=== PATIENT | female | born 1945 | race Hispanic/Latino ===

== ENCOUNTER → 2019-03-15 | Outpatient (CLI) | payer OTHER, SELFPAY | END | disposition home or self-care (01) | LOC: OIH 14:45 | PROVIDERS: ATTEND Internal Medicine Cardiovascular Disease | DX: Z13.6 Encounter for screening for cardiovascular disorders (principal) | CPT/HCPCS: 75571 ==

== ENCOUNTER 2019-04-01 12:33 | Emergency (ER) | payer OTHER, MEDICARE ==
[2019-04-01 14:02] LABS: RAPID GROUP A STREP NEGATIVE (NEGATIVE)
[2019-04-01] MEDS ORDERED: BENZONATATE 100 MG CAPSULE PO ONE (14:33)
[2019-04-01] MEDS ORDERED: ACETAMINOPHEN 325 MG TAB ONE (14:33)
== END 2019-04-01 15:42 | disposition home or self-care (01) ==
LOC: EDH 12:33
DX: J02.8 Acute pharyngitis due to other specified organisms (principal); B97.89 Other viral agents as the cause of diseases classified elsewhere; I10 Essential (primary) hypertension; I25.10 Atherosclerotic heart disease of native coronary artery without angina pectoris; Z90.49 Acquired absence of other specified parts of digestive tract
CPT/HCPCS: 87804; 87880

== ENCOUNTER 2019-05-02 06:03 | Observation (INO) | payer OTHER, MEDICARE ==
[2019-04-30 16:55] LABS: APPEARANCE,URINE CLEAR (CLEAR); BILIRUBIN,URINE NEGATIVE (NEGATIVE); COLOR,URINE YELLOW (YELLOW); GLUCOSE, URINE (UA) NEGATIVE (NEGATIVE); KETONES,URINE 15 mg/dL (NEGATIVE); LEUKOCYTE ESTERASE ,URINE NEGATIVE (NEGATIVE); NITRATE,URINE NEGATIVE (NEGATIVE); OCCULT BLOOD,URINE NEGATIVE (NEGATIVE); PH,URINE 5.5 (5.0-8.0); PROTEIN,URINE NEGATIVE (NEGATIVE); UROBILINOGEN,URINE 0.2 mg/dL (0.2-1.0)
[2019-04-30 16:58] LABS: BASOPHILS % (AUTO) 0.5 % (0.0-5.0); EOSINOPHILS % (AUTO) 0.8 % (0.0-8.0); HEMATOCRIT 34.5 % (36-48); MEAN CORPUSCULAR HGB CONC 31.1 g/dL (32.0-36.0); MEAN CORPUSCULAR VOLUME 70.8 fL (79-99); MONOCYTES % (AUTO) 9.2 % (3.0-13.0); NEUTROPHILS % (AUTO) 68.5 % (40.0-77.0); PLATELET COUNT (AUTO) 229 K/uL (130-400); RED BLOOD CELL COUNT(AUTO) 4.88 MIL/uL (4.00-5.50); RED CELL DISTRIBUTION WIDTH 23.2 % (11.0-15.5); WHITE BLOOD COUNT (AUTO) 7.2 K/uL (4.8-10.8)
[2019-04-30 17:07] LABS: CREATININE 0.7 mg/dL (0.5-1.5); POTASSIUM 4.3 mmol/L (3.5-5.1)
[2019-04-30 17:10] LABS: PARTIAL THROMBOPLASTIN TIME 27.3 SEC (26.3-35.5); PROTHROMBIN TIME 10.5 SEC (9.6-11.6)
[2019-04-30 17:20] VITALS: BP 139/56
[~2019-05-02] VITALS: Ht 148.6 cm; Wt 54.5 kg
[2019-05-02] VITALS (9 sets, daily range): BP systolic 110–143; BP diastolic 51–82
[~2019-05-02 06:03] MED LIST: ACET-2247 PO; ASPI-555 PO; ATOR10TA69 PO; CALC-1123 PO; CARDIO PO; FURO40TA5 PO; METF-446 PO; METO-408 PO; MULTI BETIC PO; OMEP40CA37 PO; VENL150T3 PO; [UNRECOGNIZED DRUG - OTHER] PO
[2019-05-02] MEDS ORDERED: SODIUM CHLORIDE 0.9% 1000ML 1,000 ML IV SCH (08:00)
[2019-05-02] MEDS ORDERED: IOHEXOL 350 MG/ML 100ML INFUS..BTL IV ONE ×2 (10:36→12:15)
[2019-05-02] MEDS ORDERED: SODIUM BICARB 50MEQ 50ML VIAL ONE (10:36)
[2019-05-02] MEDS ORDERED: NITROGLYCERIN 5 MG/ML 10 ML VIAL IV ONE (10:36)
[2019-05-02] MEDS ORDERED: IOHEXOL-350 50ML VIAL IV ONE ×2 (10:36→12:05)
[2019-05-02] MEDS ORDERED: LIDOCAINE HCL 2% 20ML ONE (10:36)
[2019-05-02] MEDS ORDERED: MIDAZOLAM HCL 1 MG/ML 2ML VIAL ONE ×2 (10:57→11:44)
[2019-05-02] MEDS ORDERED: MEPERIDINE-PF 25 MG/ML SYG ONE ×2 (10:57→11:43)
[2019-05-02] MEDS ORDERED: HEPARIN SODIUM 1000UNIT/ML 10ML VIAL ONE (11:18)
--- NOTE | 2019-05-02 12:25 | NUR ---
OBTAINED PHONE NUMBER FOR PT BROTHER THAT LIVES IN [place], PER DR. TOWNSEND HE WANTED TO INFORM FAMILY ON PT CONDITION. RAFAELA ARBOLEDA CAME TO TALK TO BRENDA LIVINGSTON ( brother ), PER PT BROTHER HE WANTS RAFAELA TO ADDRESS INFORMATION ON PT SISTER WITH HIS SON TABITHA LIVINGSTON. PTS BROTHER ONLY SPEAKS INDONESIAN. RAFAELA ARBOLEDA SPOKE TO TABITHA MIKI ON PT CONDITION AND PLAN. PER TABITHA LIVINGSTON BOTH HIM AND PT BROTHER UNDERSTANDS INFORMATION AND PLANS FOR PT PER DR. TOWNSEND. TABITHA AND BRENDA LIVINGSTON AGREED FOR INFORMATION TO BE ADDRESSED WITH PT FRIEND NAMAN HOGAN. NAMAN HOGAN IS IN PATIENTS ROOM.
[2019-05-02] MEDS ORDERED: LABETALOL HCL 5 MG/ML 20ML VIAL IV ONE (13:00)
[2019-05-02] MEDS ORDERED: CLOPIDOGREL BISULFATE 300 MG TAB ONE (13:21)
[2019-05-02] MEDS ORDERED: DEXTROSE 50%-WATER 50 ML DISP.SYRIN IV PRN (13:30)
[2019-05-02] MEDS ORDERED: ONDANSETRON HCL 4 MG/2 ML VIAL IVP PRN (13:30)
[2019-05-02] MEDS ORDERED: ACETAMINOPHEN 325 MG TAB PO PRN (13:30)
[2019-05-02] MEDS: SODIUM CHLORIDE 0.9% 10 ML VIAL IV SCH ×2 (13:30→21:30)
[2019-05-02] MEDS: ALPRAZOLAM 0.5 MG TABLET PO SCH ×2 (15:08→21:37)
[2019-05-02] MEDS: [UNRECOGNIZED DRUG - OTHER] PO SCH ×2 (17:00→20:30)
[2019-05-02] MEDS: INSULIN HUMULIN R 100 UNIT/ML 3ML SQ SCH ×2 (17:24→21:37)
[2019-05-02] MEDS: CARVEDILOL 25 MG TABLET PO SCH (20:31)
[2019-05-02] MEDS ORDERED: LOSARTAN 50 MG TABLET PO SCH (21:00)
[2019-05-02] MEDS ORDERED: ATORVASTATIN CALCIUM 10 MG TABLET PO SCH (21:00)
[2019-05-03 00:02] VITALS: BP 106/51
[2019-05-03 01:20] VITALS: BP 164/70
[2019-05-03 03:28] LABS: HEMATOCRIT 26.7 % (36-48); MEAN CORPUSCULAR HEMOGLOBIN 21.5 pg (27.0-33.0); MEAN CORPUSCULAR HGB CONC 31.4 g/dL (32.0-36.0); MEAN CORPUSCULAR VOLUME 68.5 fL (79-99); PLATELET COUNT (AUTO) 179 K/uL (130-400); RED BLOOD CELL COUNT(AUTO) 3.91 MIL/uL (4.00-5.50); RED CELL DISTRIBUTION WIDTH 22.8 % (11.0-15.5); WHITE BLOOD COUNT (AUTO) 9.3 K/uL (4.8-10.8)
[2019-05-03 03:40] LABS: ALBUMIN 2.8 g/dL (3.5-5.0); B-TYPE NATRIURETIC PEPTIDE 405 pg/mL (0-100); BILIRUBIN,TOTAL 0.2 mg/dL (0.2-1.0); CREATININE 0.6 mg/dL (0.5-1.5); POTASSIUM 3.4 mmol/L (3.5-5.1); TOTAL PROTEIN, SERUM 5.5 g/dL (6.0-8.3)
[2019-05-03 04:04] VITALS: BP 104/44
[2019-05-03] MEDS: SODIUM CHLORIDE 0.9% 10 ML VIAL IV SCH ×2 (05:19→12:41)
[2019-05-03] MEDS: INSULIN HUMULIN R 100 UNIT/ML 3ML SQ SCH ×3 (06:18→16:19)
[2019-05-03 07:00] VITALS: BP 121/50
[2019-05-03] MEDS ORDERED: MAG OX PO SCH (09:00)
[2019-05-03] MEDS ORDERED: CALCIUM CARB PO SCH (09:00)
[2019-05-03] MEDS: [UNRECOGNIZED DRUG - OTHER] PO SCH ×2 (09:00→12:41)
[2019-05-03] MEDS ORDERED: VENLAFAXINE HCL XR 37.5 MG CAP PO SCH (09:00)
[2019-05-03] MEDS ORDERED: CLOPIDOGREL BISULFATE 75 MG TAB PO SCH (09:00)
[2019-05-03] MEDS ORDERED: FUROSEMIDE 40 MG TABLET PO SCH (09:00)
[2019-05-03] MEDS ORDERED: MULTI BETIC PO SCH (09:00)
[2019-05-03] MEDS ORDERED: ASPIRIN 81MG TAB.CHEW PO SCH (09:00)
[2019-05-03] MEDS ORDERED: PANTOPRAZOLE SODIUM 40 MG TABLET.DR PO SCH (09:00)
[2019-05-03] MEDS: ALPRAZOLAM 0.5 MG TABLET PO SCH ×2 (09:00→14:00)
[2019-05-03] MEDS ORDERED: ZINC SULF PO SCH (09:00)
[2019-05-03] MEDS: CARVEDILOL 25 MG TABLET PO SCH (09:36)
[2019-05-03 11:00] VITALS: BP 74/35
[2019-05-03 16:00] VITALS: BP 117/63
[2019-05-03] MEDS ORDERED: PANT40TA PO (18:22)
[2019-05-03] MEDS ORDERED: CARV25TA77 PO (18:22)
[2019-05-03] MEDS ORDERED: LOSA50TA64 PO (18:23)
[2019-05-03] MEDS ORDERED: CLOP75TA14 PO (18:23)
[2019-05-03] MEDS ORDERED: FURO40TA5 PO (18:23)
== END 2019-05-03 19:00 | disposition home or self-care (01) ==
LOC: DAH 06:03 → DAHIP 06:04 → DAH 06:04 → 2AH 14:27
PROVIDERS: ADMIT Internal Medicine; ATTEND Internal Medicine
DX: I25.119 Atherosclerotic heart disease of native coronary artery with unspecified angina pectoris (principal); I08.1 Rheumatic disorders of both mitral and tricuspid valves; I25.5 Ischemic cardiomyopathy; I25.2 Old myocardial infarction; J45.909 Unspecified asthma, uncomplicated; I11.0 Hypertensive heart disease with heart failure; I50.9 Heart failure, unspecified; E78.5 Hyperlipidemia, unspecified; Z79.899 Other long term (current) drug therapy
CPT/HCPCS: 33990; 36415 ×2; 71045; 80048; 80053; 80061; 81003; 82948 ×6; 83880; 85025; 85027; 85610; 85730; 93005; 93458; 96372; A4606; C1725 ×2; C1760 ×4; C1769 ×2; C1874; C1876 ×2; C1887 ×2; C1889; C1894 ×2; C9600 ×2; G0378 ×26; J1644 ×2; J1815 ×2; J2175 ×2; J2250 ×2; J3490 ×4; J7030; Q9965 ×2; Q9967 ×3; 99156; 99157

== ENCOUNTER → 2019-05-09 | Outpatient (CLI) | payer OTHER, MEDICARE ==
[~2019-05-09] MED LIST changes: -CARDIO PO; +CARV25TA77 PO; +CLOP75TA14 PO; +LOSA50TA64 PO; -METO-408 PO; -OMEP40CA37 PO; +PANT40TA PO
== END | disposition home or self-care (01) ==
LOC: RAH 12:18
PROVIDERS: ATTEND Internal Medicine Cardiovascular Disease
DX: I72.4 Aneurysm of artery of lower extremity (principal)
CPT/HCPCS: 76882

== ENCOUNTER 2019-05-16 10:20 | Inpatient (IN) | payer OTHER, MEDICARE ==
[~2019-05-16] VITALS: Ht 149.9 cm; Wt 54.1 kg
[2019-05-16 10:46] LABS: BASOPHILS % (AUTO) 0.8 % (0.0-5.0); EOSINOPHILS % (AUTO) 0.8 % (0.0-8.0); HEMATOCRIT 31.2 % (36-48); LYMPHOCYTES % (AUTO) 17.9 % (21.0-51.0); MEAN CORPUSCULAR HEMOGLOBIN 22.7 pg (27.0-33.0); MEAN CORPUSCULAR HGB CONC 30.9 g/dL (32.0-36.0); MEAN CORPUSCULAR VOLUME 73.5 fL (79-99); MONOCYTES % (AUTO) 9.3 % (3.0-13.0); NEUTROPHILS % (AUTO) 71.2 % (40.0-77.0); PLATELET COUNT (AUTO) 370 K/uL (130-400); RED BLOOD CELL COUNT(AUTO) 4.25 MIL/uL (4.00-5.50); RED CELL DISTRIBUTION WIDTH 24.9 % (11.0-15.5)
[2019-05-16 10:55] LABS: INR 1.01 (0.85-1.15); PROTHROMBIN TIME 10.6 SEC (9.6-11.6)
[2019-05-16 11:20] LABS: ALBUMIN 3.2 g/dL (3.5-5.0); BILIRUBIN,TOTAL 0.2 mg/dL (0.2-1.0); CREATININE 0.7 mg/dL (0.5-1.5); POTASSIUM 4.1 mmol/L (3.5-5.1); TOTAL PROTEIN, SERUM 6.8 g/dL (6.0-8.3)
[2019-05-16] MEDS ORDERED: ASPIRIN 325 MG TABLET ONE (11:49)
[2019-05-16 13:16] LABS: APPEARANCE,URINE Clear (CLEAR); BILIRUBIN,URINE Negative (NEGATIVE); COLOR,URINE Yellow (YELLOW); GLUCOSE, URINE (UA) Negative (NEGATIVE); KETONES,URINE Negative (NEGATIVE); LEUKOCYTE ESTERASE ,URINE Negative (NEGATIVE); NITRATE,URINE Negative (NEGATIVE); OCCULT BLOOD,URINE Negative (NEGATIVE); PH,URINE 5.5 (5.0-8.0); PROTEIN,URINE Negative (NEGATIVE); UROBILINOGEN,URINE 0.2 mg/dL (0.2-1.0)
[2019-05-16] MEDS ORDERED: ENOXAPARIN SODIUM 60 MG/0.6 ML SQ ONE (14:52)
[2019-05-16 16:00] VITALS: BP 125/81
[2019-05-16] MEDS ORDERED: ACETAMINOPHEN 325 MG TAB PO PRN (17:00)
[2019-05-16] MEDS: METFORMIN HCL 500 MG TABLET PO SCH (17:48)
[2019-05-16] MEDS ORDERED: PHARMACY COMMUNICATION MISC SCH (18:15)
[2019-05-16] MEDS: ENOXAPARIN SODIUM 60 MG/0.6 ML SQ SCH ×2 (18:27→19:26)
--- NOTE | 2019-05-16 18:30 | NUR ---
ADMISSION COMPLETED. PATIENT WAS ORIENTED TO THE ROOM ENVIRONMENT AND ASSIGNED NURSE. T/C PLACED TO DR SUN FOR GLUCOSE MONITORING, DIET ORDER AND LUSTERER INVOLVEMENT DUE TO TROPONIN 0.22. ORDERS RECEIVED AND CARRIED OUT. DR JOHNSON IS MANAGER BILINGUAL AND HE WAS NOTIFIED OF THE CONSULT, AND PATIENT INFORMATION/STATUS WAS REPORTED TO HIM. PENDING MD TO SEE PATIENT.
[2019-05-16 18:54] LABS: TROPONIN I 0.19 ng/mL (0.00-0.06)
[2019-05-16 19:00] VITALS: BP 127/71
[2019-05-16] MEDS: INSULIN R PO SS1 SQ SCH (19:26)
[2019-05-16] MEDS: CARVEDILOL 25 MG TABLET PO SCH (19:56)
[2019-05-16] MEDS: LOSARTAN 50 MG TABLET PO SCH (19:56)
[2019-05-16] MEDS: ATORVASTATIN CALCIUM 10 MG TABLET PO SCH (19:56)
--- NOTE | 2019-05-16 20:27 | NUR ---
md visit dr. gomez in to see and examen patient with orders
[2019-05-17] VITALS: BP 130/57
[2019-05-17 00:04] LABS: TROPONIN I 0.17 ng/mL (0.00-0.06)
[2019-05-17 04:00] VITALS: BP 125/59
[2019-05-17] MEDS: INSULIN R PO SS1 SQ SCH ×4 (06:08→19:32)
[2019-05-17 07:30] VITALS: BP 126/61
[2019-05-17] MEDS ORDERED: REGADENOSON 0.4 MG/5 ML PF SYG IVP SCH (07:45)
[2019-05-17] MEDS: METFORMIN HCL 500 MG TABLET PO SCH ×2 (08:00→14:41)
[2019-05-17] MEDS: ZINC SULF PO SCH (09:00)
[2019-05-17] MEDS ORDERED: NON-FORMULARY MEDICATION 1 EACH (Aspirin (Aspir 81) 81 MG) PO SCH (09:00)
[2019-05-17] MEDS: CALCIUM CARB PO SCH (09:00)
[2019-05-17] MEDS: MULTI BETIC PO SCH (09:00)
[2019-05-17] MEDS: MAG OX PO SCH (09:00)
[2019-05-17] MEDS ORDERED: CLOPIDOGREL BISULFATE 75 MG TAB PO SCH (09:00)
[2019-05-17 11:00] VITALS: BP 133/96
[2019-05-17] MEDS ORDERED: ONDANSETRON HCL 4 MG/2 ML VIAL IVP PRN ×2 (11:15)
[2019-05-17] MEDS ORDERED: ONDANSETRON HCL 4 MG/2 ML VIAL ONE (11:15)
[2019-05-17] MEDS: PANTOPRAZOLE SODIUM 40 MG TABLET.DR PO SCH (11:20)
[2019-05-17] MEDS: VENLAFAXINE HCL XR 37.5 MG CAP PO SCH (11:20)
[2019-05-17] MEDS: FUROSEMIDE 40 MG TABLET PO SCH (11:21)
[2019-05-17] MEDS: ASPIRIN 325 MG TABLET PO SCH (11:21)
[2019-05-17] MEDS: CLOPIDOGREL BISULFATE 75 MG TAB PO SCH (11:21)
[2019-05-17] MEDS: ENOXAPARIN SODIUM 60 MG/0.6 ML SQ SCH ×2 (11:21→20:31)
[2019-05-17] MEDS: CARVEDILOL 25 MG TABLET PO SCH ×2 (11:21→20:25)
--- NOTE | 2019-05-17 12:25 | NUR ---
DCP: CM met with pt discussed dc plans. Pt is independent prior to admission, lives at home alone, friends lives close by. Denies any equipments/services. Pt feels safe to go back home, still drives and arranges own needs, friend Mercedes/Sydney on facesheet able to assist with transportation as necessary. DC plan to home once stable. CM to cont to follow up. Addendum: 05/17/19 at 1226 by MIGUEL CHEEMA LVN CM Amended: Links added.
[2019-05-17 16:00] VITALS: BP 97/45
[2019-05-17] MEDS ORDERED: LOSA25TA41 PO (19:38)
[2019-05-17] MEDS ORDERED: CARV12.580 PO (19:38)
[2019-05-17] MEDS ORDERED: CARVEDILOL 12.5 MG TABLET PO ONE (19:43)
[2019-05-17 20:00] VITALS: BP 134/52
[2019-05-17] MEDS: ATORVASTATIN CALCIUM 10 MG TABLET PO SCH (20:25)
[2019-05-17] MEDS: LOSARTAN 50 MG TABLET PO SCH (20:26)
[2019-05-18] VITALS: BP 130/50
[2019-05-18 04:00] VITALS: BP 125/57
[2019-05-18] MEDS: INSULIN R PO SS1 SQ SCH ×4 (05:53→19:44)
--- NOTE | 2019-05-18 07:35 | NUR ---
DR. NOREEN SUH HERE TO SEE PATIENT. AWARE OF LEXISCAN RESULTS. NELSON CHILEL FOR DR. SORTO ASKED TO OBTAIN EMPLOYMENT SECURITY OFFICER REPORTS FROM PREVIOUS ADMISSION (04/2019) AND TO PLACE IN PATIENT CHART FOR FURTHER REVIEW. ORDER PLACED TO CONSULT WITH DR. ROSADO.
[2019-05-18 08:00] VITALS: BP 136/53
[2019-05-18] MEDS: METFORMIN HCL 500 MG TABLET PO SCH ×2 (08:00→17:00)
[2019-05-18] MEDS: MAG OX PO SCH (09:00)
[2019-05-18] MEDS: CALCIUM CARB PO SCH (09:00)
[2019-05-18] MEDS: ZINC SULF PO SCH (09:00)
[2019-05-18] MEDS: MULTI BETIC PO SCH (09:00)
--- NOTE | 2019-05-18 10:00 | NUR ---
FUROSEMIDE DOSE PATIENT REPORTS TAKING HOME DOSE FUROSEMIDE 20MG PO DAILY. RX BOTTLE PATIENT HAS STATES "FUROSEMIDE 40MG PO DAILY" AND PATIENT REPLIED THAT DR. SUN INSTRUCTED PATIENT TO "TAKE HALF A PILL SO MY BLOOD PRESSURE WILL NOT DROP." I CLARIFIED TO PATIENT "YOUR FUROSEMIDE DOSE IS 20MG PO DAILY?" AND PATIENT REPLIED YES.
[2019-05-18] MEDS: ASPIRIN 325 MG TABLET PO SCH (10:07)
[2019-05-18] MEDS: CLOPIDOGREL BISULFATE 75 MG TAB PO SCH (10:08)
[2019-05-18] MEDS: PANTOPRAZOLE SODIUM 40 MG TABLET.DR PO SCH (10:08)
[2019-05-18] MEDS: CARVEDILOL 25 MG TABLET PO SCH (10:08)
[2019-05-18] MEDS: FUROSEMIDE 40 MG TABLET PO SCH (10:09)
[2019-05-18] MEDS: VENLAFAXINE HCL XR 37.5 MG CAP PO SCH (10:14)
[2019-05-18] MEDS: ENOXAPARIN SODIUM 60 MG/0.6 ML SQ SCH ×2 (10:15→21:22)
[2019-05-18 12:00] VITALS: BP 117/48
--- NOTE | 2019-05-18 13:30 | NUR ---
DR. ROSADO/CT CERVICAL SPINE RESULTS CALLED DR. ROSADO TO REPORT CT CERVICAL SPINE RESULTS. MD REPLIED PATIENT CAN FOLLOW-UP WITH DR. ARRIAGA AN OUTPATIENT AFTER DISCHARGE, NEUROSURGEON CONSULT NOT NEEDED DURING THIS HOSPITALIZATION. MD ALSO STATED THAT IF PRIMARY MD WANTS TO DISCHARGE PATIENT, OKAY TO DISCHARGE FROM NEUROLOGY STANDPOINT AND PATIENT TO F/U WITH DR. ROSADO 6-8 WEEKS AFTER DISCHARGE.
[2019-05-18] MEDS ORDERED: FURO20TA4 PO (14:00)
[2019-05-18 16:00] VITALS: BP 115/68
[2019-05-18 19:45] VITALS: BP 128/54
[2019-05-18] MEDS ORDERED: CARVEDILOL 12.5 MG TABLET PO ONE (19:54)
[2019-05-18] MEDS: ATORVASTATIN CALCIUM 10 MG TABLET PO SCH (20:19)
[2019-05-18] MEDS: LOSARTAN 50 MG TABLET PO SCH (20:19)
[2019-05-18] MEDS: CARVEDILOL 12.5 MG TABLET PO SCH (20:23)
[2019-05-19] VITALS: BP 147/75
[2019-05-19 04:00] VITALS: BP 129/54
[2019-05-19] MEDS: INSULIN R PO SS1 SQ SCH ×4 (06:30→21:00)
[2019-05-19 08:00] VITALS: BP 131/40
[2019-05-19] MEDS: METFORMIN HCL 500 MG TABLET PO SCH ×2 (08:00→16:48)
[2019-05-19] MEDS: MAG OX PO SCH (09:00)
[2019-05-19] MEDS: MULTI BETIC PO SCH (09:00)
[2019-05-19] MEDS: CALCIUM CARB PO SCH (09:00)
[2019-05-19] MEDS: ZINC SULF PO SCH (09:00)
[2019-05-19] MEDS: ASPIRIN 325 MG TABLET PO SCH (09:16)
[2019-05-19] MEDS: FUROSEMIDE 20 MG TABLET PO SCH (09:16)
[2019-05-19] MEDS: CARVEDILOL 12.5 MG TABLET PO SCH ×2 (09:17→21:06)
[2019-05-19] MEDS: CLOPIDOGREL BISULFATE 75 MG TAB PO SCH (09:17)
[2019-05-19] MEDS: VENLAFAXINE HCL XR 37.5 MG CAP PO SCH (09:17)
[2019-05-19] MEDS: PANTOPRAZOLE SODIUM 40 MG TABLET.DR PO SCH (09:17)
[2019-05-19] MEDS: ENOXAPARIN SODIUM 60 MG/0.6 ML SQ SCH ×2 (09:17→21:08)
[2019-05-19 11:42] VITALS: BP 126/64
--- NOTE | 2019-05-19 13:05 | NUR ---
TANIA MARIN MD TO REPORT THAT 2-D ECHO EXAM HAS BEEN COMPLETED. Addendum: 05/19/19 at 1308 by MANOJ SIFUENTES RN RN DR. JAIMES RETURNED MY CALL. AWARE THAT 2D-ECHO HAS BEEN COMPLETED.
[2019-05-19 15:25] VITALS: BP 133/55
[2019-05-19 20:00] VITALS: BP 129/52
[2019-05-19] MEDS: ATORVASTATIN CALCIUM 10 MG TABLET PO SCH (21:06)
[2019-05-19] MEDS: LOSARTAN 50 MG TABLET PO SCH (21:06)
[2019-05-20] VITALS: BP 119/51
[2019-05-20 04:00] VITALS: BP 135/65
[2019-05-20] MEDS: INSULIN R PO SS1 SQ SCH ×2 (07:30→11:30)
--- NOTE | 2019-05-20 07:30 | NUR ---
DR ANSARI ROUNDED ON PATIENT CALL HIM IF CLEAR FROM CARDIO SERVICE WHEN THEY READ THE ECHO.
[2019-05-20 07:38] VITALS: BP 139/66
[2019-05-20] MEDS: ZINC SULF PO SCH (09:00)
[2019-05-20] MEDS: MAG OX PO SCH (09:00)
[2019-05-20] MEDS: MULTI BETIC PO SCH (09:00)
[2019-05-20] MEDS: CALCIUM CARB PO SCH (09:00)
[2019-05-20] MEDS: CLOPIDOGREL BISULFATE 75 MG TAB PO SCH (09:46)
[2019-05-20] MEDS: FUROSEMIDE 20 MG TABLET PO SCH (09:46)
[2019-05-20] MEDS: ASPIRIN 325 MG TABLET PO SCH (09:46)
[2019-05-20] MEDS: PANTOPRAZOLE SODIUM 40 MG TABLET.DR PO SCH (09:46)
[2019-05-20] MEDS: VENLAFAXINE HCL XR 37.5 MG CAP PO SCH (09:46)
[2019-05-20] MEDS: CARVEDILOL 12.5 MG TABLET PO SCH (09:46)
[2019-05-20] MEDS: METFORMIN HCL 500 MG TABLET PO SCH (09:49)
[2019-05-20] MEDS: ENOXAPARIN SODIUM 60 MG/0.6 ML SQ SCH (09:52)
[2019-05-20 10:53] VITALS: BP 135/55
--- NOTE | 2019-05-20 14:10 | NUR ---
CONTACTED DR MCCURDY , PER DR JAIMES PATIENT IS CLEAR TO GDISCHARGE AND SHE IS TO FOLLOW-UP WITH HER PRECISION ASSEMBLY INSPECTOR IN 1-2 WEEKS . RECIEVED DISCHARGE ORDERS FROM DR MCCURDY.
[2019-05-20 16:13] VITALS: BP 128/59
--- NOTE | 2019-05-20 18:00 | NUR ---
DISCHARGE INSTRUCTION GIVEN USING THE BLUE PHONE TO TRANSLATION INSTRUCTION INTO SWEDISH PATIENT VERBALIZED UNDERSTANDING, TO FOLLOW-UP WITH HER WIRELESS ENGINEER IN 1-[address] SUN IN 1-2 WEEKS PATIENT TO CALL FOR APPOINTMENT. IV REMOVED WITH CATHTER INTACT AND SITE DRESSED,. TELEMETRY UNIT NOTIFIED OF DISCHARGE STATUS AND UNIT REMOVE. PATIENT TAKING BY WHEELCHAIR TO LOBBY AND LEFT WITH FAMILY FOR HOME NO QUESTIONS OR CONCERNS AT THIS TIME.
== END 2019-05-20 18:11 | disposition home or self-care (01) | DRG 552 ==
LOC: EDH 10:20 → EDHIP 12:00 → OBSVTOIN 12:00 → 4BH 15:41
PROVIDERS: ADMIT Internal Medicine; ATTEND Internal Medicine
DX: M48.02 Spinal stenosis, cervical region (principal); I42.0 Dilated cardiomyopathy; E11.9 Type 2 diabetes mellitus without complications; E78.5 Hyperlipidemia, unspecified; I10 Essential (primary) hypertension; I25.10 Atherosclerotic heart disease of native coronary artery without angina pectoris; I34.0 Nonrheumatic mitral (valve) insufficiency; Z95.5 Presence of coronary angioplasty implant and graft; Z86.73 Personal history of transient ischemic attack (TIA), and cerebral infarction without residual deficits; Z88.0 Allergy status to penicillin
CPT/HCPCS: 36415; 70450; 72125; 78452; 80053; 81003; 82550; 82948; 83874; 84484; 85025; 85610; 85730; 93005; 93017; 93306; 93880; 96374; A9500; G0378; J1650; J2405; J2785

== ENCOUNTER 2019-05-25 14:12 | Emergency (ER) | payer OTHER, MEDICARE ==
[~2019-05-25 14:12] MED LIST changes: +CARV12.580 PO; -CARV25TA77 PO; +FURO20TA4 PO; -FURO40TA5 PO; +LOSA25TA41 PO; -LOSA50TA64 PO; -[UNRECOGNIZED DRUG - OTHER] PO
[2019-05-25 16:49] LABS: BASOPHILS % (AUTO) 0.4 % (0.0-5.0); EOSINOPHILS % (AUTO) 0.4 % (0.0-8.0); HEMATOCRIT 34.1 % (36-48); LYMPHOCYTES % (AUTO) 14.3 % (21.0-51.0); MEAN CORPUSCULAR HEMOGLOBIN 23.2 pg (27.0-33.0); MEAN CORPUSCULAR HGB CONC 30.8 g/dL (32.0-36.0); MEAN CORPUSCULAR VOLUME 75.5 fL (79-99); MONOCYTES % (AUTO) 9.2 % (3.0-13.0); NEUTROPHILS % (AUTO) 75.7 % (40.0-77.0); PLATELET COUNT (AUTO) 265 K/uL (130-400); RED BLOOD CELL COUNT(AUTO) 4.51 MIL/uL (4.00-5.50); WHITE BLOOD COUNT (AUTO) 9.2 K/uL (4.8-10.8)
[2019-05-25 16:57] LABS: CREATININE 0.8 mg/dL (0.5-1.5); POTASSIUM 4.1 mmol/L (3.5-5.1)
[2019-05-25 17:14] LABS: APPEARANCE,URINE Clear (CLEAR); BILIRUBIN,URINE Negative (NEGATIVE); COLOR,URINE Yellow (YELLOW); GLUCOSE, URINE (UA) Negative (NEGATIVE); KETONES,URINE Negative (NEGATIVE); LEUKOCYTE ESTERASE ,URINE Negative (NEGATIVE); NITRATE,URINE Negative (NEGATIVE); OCCULT BLOOD,URINE Negative (NEGATIVE); PH,URINE 5.5 (5.0-8.0); PROTEIN,URINE Negative (NEGATIVE); UROBILINOGEN,URINE 0.2 mg/dL (0.2-1.0)
== END 2019-05-25 18:00 | disposition home or self-care (01) ==
LOC: EDH 14:12
DX: R07.82 Intercostal pain (principal); R55 Syncope and collapse; I25.10 Atherosclerotic heart disease of native coronary artery without angina pectoris; I10 Essential (primary) hypertension; E11.9 Type 2 diabetes mellitus without complications; F41.9 Anxiety disorder, unspecified; Z95.1 Presence of aortocoronary bypass graft; W18.39XA Other fall on same level, initial encounter; Y93.89 Activity, other specified; Y92.89 Other specified places as the place of occurrence of the external cause; Y99.8 Other external cause status
CPT/HCPCS: 36415; 71101; 80048; 81003; 84484; 85025; 93005

== ENCOUNTER 2019-06-17 09:24 | Emergency (ER) | payer OTHER, MEDICARE ==
[2019-06-17 09:42] LABS: BASOPHILS % (AUTO) 0.4 % (0.0-5.0); EOSINOPHILS % (AUTO) 0.2 % (0.0-8.0); LYMPHOCYTES % (AUTO) 12.7 % (21.0-51.0); MEAN CORPUSCULAR HEMOGLOBIN 24.3 pg (27.0-33.0); MEAN CORPUSCULAR HGB CONC 31.4 g/dL (32.0-36.0); MEAN CORPUSCULAR VOLUME 77.5 fL (79-99); MONOCYTES % (AUTO) 7.4 % (3.0-13.0); NEUTROPHILS % (AUTO) 79.3 % (40.0-77.0); PLATELET COUNT (AUTO) 273 K/uL (130-400); RED BLOOD CELL COUNT(AUTO) 4.26 MIL/uL (4.00-5.50); RED CELL DISTRIBUTION WIDTH 22.1 % (11.0-15.5); WHITE BLOOD COUNT (AUTO) 8.8 K/uL (4.8-10.8)
[2019-06-17 09:56] LABS: ALBUMIN 3.5 g/dL (3.5-5.0); BILIRUBIN,TOTAL 0.3 mg/dL (0.2-1.0); POTASSIUM 3.2 mmol/L (3.5-5.1)
[2019-06-17 10:00] LABS: CREATININE 0.8 mg/dL (0.5-1.5)
[2019-06-17 10:03] LABS: APPEARANCE,URINE Clear (CLEAR); BILIRUBIN,URINE Negative (NEGATIVE); COLOR,URINE Yellow (YELLOW); GLUCOSE, URINE (UA) Negative (NEGATIVE); KETONES,URINE Negative (NEGATIVE); LEUKOCYTE ESTERASE ,URINE Small (NEGATIVE); NITRATE,URINE Negative (NEGATIVE); OCCULT BLOOD,URINE Negative (NEGATIVE); PH,URINE 6.5 (5.0-8.0); PROTEIN,URINE Negative (NEGATIVE); UROBILINOGEN,URINE 0.2 mg/dL (0.2-1.0)
[2019-06-17 10:16] LABS: BACTERIA,URINE Rare /HPF (None Seen); RBC,URINE None Seen /HPF (0-1); SQUAMOUS EPITHELIAL CELL,UR Rare /HPF (0-2); WBC,URINE 0-1 /HPF (0-1)
== END 2019-06-17 12:34 | disposition home or self-care (01) ==
LOC: EDH 09:24
DX: F41.8 Other specified anxiety disorders (principal); H81.399 Other peripheral vertigo, unspecified ear; I25.10 Atherosclerotic heart disease of native coronary artery without angina pectoris; E11.9 Type 2 diabetes mellitus without complications; I10 Essential (primary) hypertension; Z90.49 Acquired absence of other specified parts of digestive tract; Z88.0 Allergy status to penicillin
CPT/HCPCS: 36415; 80053; 81001; 84484; 85025; 93005

== ENCOUNTER 2020-09-14 17:25 | Emergency (ER) | payer OTHER, MEDICARE ==
[~2020-09-14 17:25] MED LIST changes: -ASPI-555 PO; +ASPI-556 PO
[2020-09-14 18:01] LABS: BASOPHILS % (AUTO) 0.6 % (0.0-5.0); EOSINOPHILS % (AUTO) 1.3 % (0.0-8.0); HEMATOCRIT 38.5 % (36-48); LYMPHOCYTES % (AUTO) 41.7 % (21.0-51.0); MEAN CORPUSCULAR HGB CONC 32.2 g/dL (32.0-36.0); MEAN CORPUSCULAR VOLUME 83.9 fL (79-99); MONOCYTES % (AUTO) 13.2 % (3.0-13.0); PLATELET COUNT (AUTO) 186 K/uL (130-400); RED BLOOD CELL COUNT(AUTO) 4.59 MIL/uL (4.00-5.50); RED CELL DISTRIBUTION WIDTH 13.7 % (11.0-15.5); WHITE BLOOD COUNT (AUTO) 5.3 K/uL (4.8-10.8)
[2020-09-14 18:14] LABS: INR 0.94 (0.85-1.15); PROTHROMBIN TIME 10.2 SEC (9.6-11.6)
[2020-09-14 18:16] LABS: ALBUMIN 3.8 g/dL (3.5-5.0); BILIRUBIN,TOTAL 0.1 mg/dL (0.2-1.0); TOTAL PROTEIN, SERUM 7.2 g/dL (6.0-8.3)
== END 2020-09-14 19:22 | disposition home or self-care (01) ==
LOC: EDH 17:25
DX: I10 Essential (primary) hypertension (principal); E11.9 Type 2 diabetes mellitus without complications; Z88.0 Allergy status to penicillin
CPT/HCPCS: 36415; 71045; 80053; 82550; 84484; 85025; 85610; 85730; 93005

== ENCOUNTER 2021-08-05 21:19 | Emergency (ER) | payer MEDICARE ==
[~2021-08-05] VITALS: Ht 149.9 cm; Wt 59.9 kg
[~2021-08-05 21:19] MED LIST changes: -ACET-2247 PO; +ACET325T51 PO; -ASPI-556 PO; +BACL10TA PO; -CALC-1123 PO; -CARV12.580 PO; +CARV25TA PO; -CLOP75TA14 PO; +GLIP-162 PO; -LOSA25TA41 PO; +LOSA50TA64 PO; +MEMA10TA55 PO; -METF-446 PO; -MULTI BETIC PO; -PANT40TA PO; +PANT40TA54 PO; +SUCR1TAB2 PO
[2021-08-06] MEDS ORDERED: SOLU-MEDROL 125MG VIAL IVP ONE (01:30)
[2021-08-06] MEDS ORDERED: METH4TAB3 PO (02:36)
[2021-08-06 02:40] VITALS: BP 151/58
== END 2021-08-06 02:41 | disposition home or self-care (01) ==
LOC: EDH 21:19
DX: R07.89 Other chest pain (principal); M79.18 Myalgia, other site; M54.5 Low back pain; M25.561 Pain in right knee; M25.562 Pain in left knee; E78.00 Pure hypercholesterolemia, unspecified; I10 Essential (primary) hypertension; M19.90 Unspecified osteoarthritis, unspecified site; Z79.52 Long term (current) use of systemic steroids; E11.9 Type 2 diabetes mellitus without complications; Z79.84 Long term (current) use of oral hypoglycemic drugs; Z79.899 Other long term (current) drug therapy; Z88.0 Allergy status to penicillin; Z95.5 Presence of coronary angioplasty implant and graft; Z95.810 Presence of automatic (implantable) cardiac defibrillator; W18.39XA Other fall on same level, initial encounter; Y93.89 Activity, other specified; Y92.89 Other specified places as the place of occurrence of the external cause; Y99.8 Other external cause status
CPT/HCPCS: 96372; 99283; J2930

== ENCOUNTER 2021-10-18 10:56 | Emergency (ER) | payer MEDICARE ==
[~2021-10-18] VITALS: Ht 152.4 cm; Wt 58.5 kg
[~2021-10-18 10:56] MED LIST changes: +METH4TAB3 PO
[2021-10-18 12:15] VITALS: BP 162/62
== END 2021-10-18 12:27 | disposition home or self-care (01) ==
LOC: EDH 10:56
DX: I10 Essential (primary) hypertension (principal); F41.9 Anxiety disorder, unspecified; E11.9 Type 2 diabetes mellitus without complications; E78.00 Pure hypercholesterolemia, unspecified; F32.A Depression, unspecified; Z88.0 Allergy status to penicillin; M19.90 Unspecified osteoarthritis, unspecified site; Z79.52 Long term (current) use of systemic steroids; Z79.84 Long term (current) use of oral hypoglycemic drugs; Z79.899 Other long term (current) drug therapy; Z85.828 Personal history of other malignant neoplasm of skin; Z95.810 Presence of automatic (implantable) cardiac defibrillator
CPT/HCPCS: 93005

== ENCOUNTER 2022-06-28 23:25 | Emergency (ER) | payer OTHER, MEDICARE ==
[2022-06-28 23:50] LABS: BASOPHILS % (AUTO) 0.4 % (0.0-5.0); EOSINOPHILS % (AUTO) 0.9 % (0.0-8.0); HEMATOCRIT 33.9 % (36-48); LYMPHOCYTES % (AUTO) 35.1 % (21.0-51.0); MEAN CORPUSCULAR HEMOGLOBIN 26.3 pg (27.0-33.0); MEAN CORPUSCULAR HGB CONC 32.7 g/dL (32.0-36.0); MEAN CORPUSCULAR VOLUME 80.3 fL (79-99); MONOCYTES % (AUTO) 11.2 % (3.0-13.0); NEUTROPHILS % (AUTO) 52.1 % (40.0-77.0); PLATELET COUNT (AUTO) 226 K/uL (130-400); RED BLOOD CELL COUNT(AUTO) 4.22 MIL/uL (4.00-5.50); RED CELL DISTRIBUTION WIDTH 15.2 % (11.0-15.5); WHITE BLOOD COUNT (AUTO) 7.5 K/uL (4.8-10.8)
[2022-06-28 23:55] LABS: APPEARANCE,URINE CLEAR (CLEAR); BILIRUBIN,URINE NEGATIVE (NEGATIVE); COLOR,URINE YELLOW (YELLOW); GLUCOSE, URINE (UA) NEGATIVE (NEGATIVE); KETONES,URINE NEGATIVE (NEGATIVE); LEUKOCYTE ESTERASE ,URINE NEGATIVE (NEGATIVE); NITRATE,URINE NEGATIVE (NEGATIVE); OCCULT BLOOD,URINE NEGATIVE (NEGATIVE); PROTEIN,URINE NEGATIVE (NEGATIVE); UROBILINOGEN,URINE 0.2 mg/dL (0.2-1.0)
[2022-06-28 23:58] LABS: CREATININE 0.8 mg/dL (0.5-1.5); POTASSIUM 4.2 mmol/L (3.5-5.1)
[2022-06-29] LABS: INR 0.93 (0.85-1.15); PROTHROMBIN TIME 9.9 SEC (9.6-11.6)
[2022-06-29] MEDS ORDERED: LABETALOL 20MG SYG IV ONE
[2022-06-29 00:01] LABS: PARTIAL THROMBOPLASTIN TIME 27.1 SEC (26.3-35.5)
[2022-06-29] MEDS ORDERED: MELA1TAB28 PO (00:01)
[2022-06-29] MEDS ORDERED: VENL-191 PO (00:01)
[2022-06-29] MEDS ORDERED: GLIP5TAB11 PO (00:01)
[2022-06-29] MEDS ORDERED: CARV25TA PO (00:01)
[2022-06-29] MEDS ORDERED: AEC81 PO (00:01)
[2022-06-29] MEDS ORDERED: LOSA25TA41 PO (00:01)
[2022-06-29] MEDS ORDERED: ATOR10TA69 PO (00:01)
[2022-06-29] MEDS ORDERED: PANT40TA54 PO (00:01)
[2022-06-29 00:04] LABS: TOTAL PROTEIN, SERUM 7.6 g/dL (6.0-8.3)
[2022-06-29] MEDS ORDERED: ACETAMINOPHEN 325 MG TAB ONE (02:10)
[2022-06-29 02:12] VITALS: BP 118/56
[2022-06-29] MEDS ORDERED: ACETAMINOPHEN 325 MG TAB PO ONE (02:30)
== END 2022-06-29 02:24 | disposition home or self-care (01) ==
LOC: EDH 23:25
DX: G44.209 Tension-type headache, unspecified, not intractable (principal); R03.0 Elevated blood-pressure reading, without diagnosis of hypertension; E87.1 Hypo-osmolality and hyponatremia; F41.9 Anxiety disorder, unspecified; E11.9 Type 2 diabetes mellitus without complications; E78.00 Pure hypercholesterolemia, unspecified; Z88.0 Allergy status to penicillin; Z79.899 Other long term (current) drug therapy; Z79.82 Long term (current) use of aspirin; Z79.84 Long term (current) use of oral hypoglycemic drugs; Z98.890 Other specified postprocedural states
CPT/HCPCS: 36415; 80053; 81003; 85025; 85610; 85730; 96374

== ENCOUNTER 2022-08-18 23:08 | Emergency (ER) | payer OTHER, MEDICARE ==
[~2022-08-18] VITALS: Ht 149.9 cm; Wt 59.0 kg
[~2022-08-18 23:08] MED LIST changes: +AEC81 PO; +GLIP5TAB11 PO; +LOSA25TA41 PO; +MELA1TAB28 PO; +VENL-191 PO
[2022-08-18 23:34] LABS: BASOPHILS % (AUTO) 0.5 % (0.0-5.0); EOSINOPHILS % (AUTO) 1.8 % (0.0-8.0); LYMPHOCYTES % (AUTO) 35.8 % (21.0-51.0); MEAN CORPUSCULAR HEMOGLOBIN 26.7 pg (27.0-33.0); MEAN CORPUSCULAR HGB CONC 32.8 g/dL (32.0-36.0); MEAN CORPUSCULAR VOLUME 81.4 fL (79-99); MONOCYTES % (AUTO) 12.4 % (3.0-13.0); NEUTROPHILS % (AUTO) 49.3 % (40.0-77.0); PLATELET COUNT (AUTO) 211 K/uL (130-400); RED BLOOD CELL COUNT(AUTO) 3.93 MIL/uL (4.00-5.50); RED CELL DISTRIBUTION WIDTH 15.9 % (11.0-15.5)
[2022-08-18 23:52] LABS: CREATININE 0.9 mg/dL (0.5-1.5); POTASSIUM 3.7 mmol/L (3.5-5.1)
[2022-08-18 23:58] LABS: ALBUMIN 3.8 g/dL (3.5-5.0)
[2022-08-19] MEDS ORDERED: CARVEDILOL 25 MG TABLET PO STA (00:22)
[2022-08-19 00:48] LABS: APPEARANCE,URINE CLEAR (CLEAR); BILIRUBIN,URINE NEGATIVE (NEGATIVE); COLOR,URINE COLORLESS (YELLOW); GLUCOSE, URINE (UA) NEGATIVE (NEGATIVE); KETONES,URINE NEGATIVE (NEGATIVE); LEUKOCYTE ESTERASE ,URINE NEGATIVE Leu/uL (NEGATIVE); NITRATE,URINE NEGATIVE (NEGATIVE); OCCULT BLOOD,URINE NEGATIVE (NEGATIVE); PH,URINE 5.5 (5.0-8.0); PROTEIN,URINE NEGATIVE (NEGATIVE); UROBILINOGEN,URINE 0.2 mg/dL (0.2-1.0)
[2022-08-19 01:36] VITALS: BP 130/38
== END 2022-08-19 06:54 | disposition home or self-care (01) ==
LOC: EDH 23:08
DX: I10 Essential (primary) hypertension (principal); F41.9 Anxiety disorder, unspecified; M19.90 Unspecified osteoarthritis, unspecified site; F32.A Depression, unspecified; E11.9 Type 2 diabetes mellitus without complications; E78.00 Pure hypercholesterolemia, unspecified; Z98.890 Other specified postprocedural states; Z79.84 Long term (current) use of oral hypoglycemic drugs; Z88.0 Allergy status to penicillin; Z79.82 Long term (current) use of aspirin; Z79.899 Other long term (current) drug therapy
CPT/HCPCS: 36415; 80053; 81003; 85025; 93005

== ENCOUNTER 2022-08-29 12:53 | Inpatient (IN) | payer OTHER, MEDICARE ==
[~2022-08-29] VITALS: Ht 157.5 cm; Wt 58.6 kg
[2022-08-29] VITALS (13 sets, daily range): BP systolic 121–159; BP diastolic 48–87
[2022-08-29 13:29] LABS: BASOPHILS % (AUTO) 0.3 % (0.0-5.0); EOSINOPHILS % (AUTO) 0.6 % (0.0-8.0); HEMATOCRIT 31.3 % (36-48); LYMPHOCYTES % (AUTO) 19.1 % (21.0-51.0); MEAN CORPUSCULAR HEMOGLOBIN 27.1 pg (27.0-33.0); MEAN CORPUSCULAR HGB CONC 34.2 g/dL (32.0-36.0); MEAN CORPUSCULAR VOLUME 79.2 fL (79-99); NEUTROPHILS % (AUTO) 68.2 % (40.0-77.0); PLATELET COUNT (AUTO) 217 K/uL (130-400); RED BLOOD CELL COUNT(AUTO) 3.95 MIL/uL (4.00-5.50); RED CELL DISTRIBUTION WIDTH 14.8 % (11.0-15.5); WHITE BLOOD COUNT (AUTO) 10.6 K/uL (4.8-10.8)
[2022-08-29 14:05] LABS: ACETAMINOPHEN < 1 mcg/mL (10-30); SALICYLATE < 2.8 mg/dL (2.8-20.0)
[2022-08-29 14:06] LABS: ALCOHOL, BLOOD < 3 mg/dL (0-10)
[2022-08-29 14:31] LABS: ALBUMIN 3.4 g/dL (3.5-5.0); CREATININE 1.2 mg/dL (0.5-1.5); POTASSIUM 3.4 mmol/L (3.5-5.1); TOTAL PROTEIN, SERUM 6.8 g/dL (6.0-8.3)
[2022-08-29] MEDS ORDERED: 0.9%NACL 1000ML 1,000 ML IV SCH (15:00)
[2022-08-29 15:52] LABS: APPEARANCE,URINE CLEAR (CLEAR); BILIRUBIN,URINE NEGATIVE (NEGATIVE); COLOR,URINE LIGHT-YELLOW (YELLOW); GLUCOSE, URINE (UA) 500 mg/dL (NEGATIVE); KETONES,URINE 5 mg/dL (NEGATIVE); LEUKOCYTE ESTERASE ,URINE NEGATIVE Leu/uL (NEGATIVE); NITRATE,URINE NEGATIVE (NEGATIVE); OCCULT BLOOD,URINE NEGATIVE (NEGATIVE); PROTEIN,URINE NEGATIVE (NEGATIVE); UROBILINOGEN,URINE 0.2 mg/dL (0.2-1.0)
[2022-08-29 15:53] LABS: MUCUS,URINE RARE LPF (None Seen); SQUAMOUS EPITHELIAL CELL,UR RARE /HPF (0-2); WBC,URINE 0-1 /HPF (0-1)
[2022-08-29] MEDS: 0.9%NACL 1000ML 1,000 ML IV SCH (16:28)
[2022-08-29] MEDS: INSULIN HUMULIN R 100 UNIT/ML 3ML SQ SCH ×2 (16:37→20:23)
[2022-08-29] MEDS ORDERED: CLONIDINE HCL 0.1 MG TABLET PO PRN (18:00)
[2022-08-29] MEDS ORDERED: ACETAMINOPHEN 325 MG TAB PO PRN (18:00)
[2022-08-29] MEDS ORDERED: POTASSIUM CHLORIDE 10% ELIXIR 20 MEQ/15 ML UDCUP PO PRN (18:00)
[2022-08-29] MEDS ORDERED: ACETAMINOPHEN 650 MG SUPPOSITORY RC PRN (18:00)
[2022-08-29] MEDS ORDERED: KCL 20 MEQ ERTAB PO PRN (18:00)
[2022-08-29] MEDS ORDERED: MAGNESIUM 2GM PREMIX 50ML 50 ML IV PRN (18:00)
[2022-08-29] MEDS ORDERED: POTASSIUM CHLORIDE 20MEQ/100ML 100 ML IV PRN (18:00)
[2022-08-29] MEDS ORDERED: HYDRALAZINE 20MG/ML VIAL IV PRN (18:00)
[2022-08-29] MEDS ORDERED: DEXTROSE 50%-WATER 50 ML DISP.SYRIN IV PRN (18:00)
[2022-08-29] MEDS ORDERED: GLUCAGON 1MG KIT 1 MG ML IM PRN (18:00)
[2022-08-29] MEDS ORDERED: ONDANSETRON 4MG INJ IVP PRN (18:00)
[2022-08-29] MEDS ORDERED: LABETALOL 20MG SYG IV PRN (18:00)
[2022-08-29] MEDS ORDERED: LACTULOSE 20 GM/30 ML UDCUP PO PRN (18:00)
[2022-08-29] MEDS ORDERED: DOCUSATE SODIUM 100 MG CAP PO PRN (18:00)
[2022-08-29] MEDS ORDERED: TEMAZEPAM 15 MG CAPSULE PO PRN (18:00)
[2022-08-29] MEDS: SODIUM CHLORIDE 1,000 MG TAB PO SCH ×3 (18:35→21:00)
[2022-08-30] VITALS (30 sets, daily range): BP systolic 110–181; BP diastolic 40–145
[2022-08-30 03:32] LABS: BASOPHILS % (AUTO) 0.3 % (0.0-5.0); EOSINOPHILS % (AUTO) 0.6 % (0.0-8.0); HEMATOCRIT 29.7 % (36-48); LYMPHOCYTES % (AUTO) 25.4 % (21.0-51.0); MEAN CORPUSCULAR VOLUME 81.8 fL (79-99); MONOCYTES % (AUTO) 15.6 % (3.0-13.0); NEUTROPHILS % (AUTO) 57.8 % (40.0-77.0); PLATELET COUNT (AUTO) 240 K/uL (130-400); RED BLOOD CELL COUNT(AUTO) 3.63 MIL/uL (4.00-5.50); WHITE BLOOD COUNT (AUTO) 8.9 K/uL (4.8-10.8)
[2022-08-30 03:39] LABS: ALBUMIN 3.1 g/dL (3.5-5.0); CREATININE 0.8 mg/dL (0.5-1.5); MAGNESIUM 2.1 mg/dL (1.80-2.40); PHOSPHORUS 3.4 mg/dL (2.5-4.9); POTASSIUM 3.6 mmol/L (3.5-5.1); TOTAL PROTEIN, SERUM 6.3 g/dL (6.0-8.3)
[2022-08-30] MEDS: INSULIN HUMULIN R 100 UNIT/ML 3ML SQ SCH ×4 (07:30→21:00)
[2022-08-30] MEDS ORDERED: SIMV10TA97 PO (07:55)
[2022-08-30] MEDS ORDERED: BISA-107 PO (07:55)
[2022-08-30] MEDS ORDERED: PRED5TAB PO (07:55)
[2022-08-30] MEDS ORDERED: OXYM-30 NS (07:55)
[2022-08-30] MEDS ORDERED: GUAI-1166 PO (07:55)
[2022-08-30] MEDS ORDERED: TRAM50TA4 PO (07:55)
[2022-08-30] MEDS ORDERED: LOSA-422 PO (07:55)
[2022-08-30] MEDS ORDERED: CLON0.5T23 PO (07:55)
[2022-08-30] MEDS ORDERED: ENOXAPARIN SODIUM 30 MG/0.3 ML SQ SCH (09:00)
[2022-08-30] MEDS: CETIRIZINE HCL 5 MG TABLET PO SCH (09:13)
[2022-08-30] MEDS: PANTOPRAZOLE 40 MG TAB DR PO SCH (09:14)
[2022-08-30] MEDS: ENOXAPARIN SODIUM 30 MG/0.3 ML SQ SCH (09:14)
[2022-08-30] MEDS: ASPIRIN 81MG CHEW TAB PO SCH (09:14)
[2022-08-30] MEDS: 0.9%NACL 1000ML 1,000 ML IV SCH (09:14)
[2022-08-30] MEDS ORDERED: GUAIFENESIN PO PRN (16:00)
[2022-08-30] MEDS ORDERED: CODEINE PHOSPHATE PO PRN (16:00)
[2022-08-30] MEDS ORDERED: [UNRECOGNIZED DRUG - OTHER] PO PRN (16:00)
[2022-08-30] MEDS ORDERED: TRAMADOL HCL 50 MG TABLET PO PRN (16:00)
[2022-08-30] MEDS ORDERED: NON-FORMULARY MEDICATION 1 EACH (Clonazepam 0.5 MG) PO PRN (16:00)
[2022-08-30] MEDS ORDERED: GUAIFENESIN-CODEINE 5 ML SYRUP PO PRN (16:00)
[2022-08-30] MEDS ORDERED: LOSARTAN 50 MG TABLET PO SCH (16:00)
[2022-08-30] MEDS ORDERED: ACETAMINOPHEN 325 MG TAB PO PRN (16:00)
[2022-08-30] MEDS ORDERED: BISACODYL 5 MG TABLET.DR PO PRN (16:00)
[2022-08-30] MEDS ORDERED: CLONAZEPAM 0.5 MG TABLET PO PRN (16:00)
[2022-08-30] MEDS: SUCRALFATE 1 GM TABLET PO SCH ×2 (16:35→20:18)
[2022-08-30] MEDS: CARVEDILOL 25 MG TABLET PO SCH (20:18)
[2022-08-30] MEDS: GLIPIZIDE 5 MG TABLET PO SCH (20:18)
[2022-08-30] MEDS ORDERED: Melatonin/Pyridoxine HCl (B6) (Melatonin 3 mg Tablet) PO SCH (21:00)
[2022-08-30] MEDS ORDERED: SIMVASTATIN 10 MG TABLET PO SCH (21:00)
[2022-08-31 04:07] VITALS: BP 137/59
[2022-08-31 05:05] LABS: CREATININE 0.9 mg/dL (0.5-1.5); POTASSIUM 3.6 mmol/L (3.5-5.1)
[2022-08-31] MEDS: SUCRALFATE 1 GM TABLET PO SCH (07:30)
[2022-08-31] MEDS: INSULIN HUMULIN R 100 UNIT/ML 3ML SQ SCH ×2 (07:30→11:30)
[2022-08-31 07:45] VITALS: BP 129/75
[2022-08-31] MEDS ORDERED: OXYMETAZOLINE HCL SPRAY 15 ML BOTTLE NS SCH (09:00)
[2022-08-31] MEDS ORDERED: VENLAFAXINE HCL 75 MG TAB PO SCH (09:00)
[2022-08-31] MEDS ORDERED: LOSARTAN 50 MG TABLET PO SCH (09:00)
[2022-08-31] MEDS ORDERED: NON-FORMULARY MEDICATION 1 EACH (Memantine HCl 10 MG) PO SCH (09:00)
[2022-08-31] MEDS ORDERED: PANTOPRAZOLE 40 MG TAB DR PO SCH (09:00)
[2022-08-31] MEDS ORDERED: MEMANTINE HCL 5 MG TABLET PO SCH (09:00)
[2022-08-31] MEDS: CETIRIZINE HCL 5 MG TABLET PO SCH (09:54)
[2022-08-31] MEDS: ENOXAPARIN SODIUM 30 MG/0.3 ML SQ SCH (09:54)
[2022-08-31] MEDS: CARVEDILOL 25 MG TABLET PO SCH (09:55)
[2022-08-31] MEDS: GLIPIZIDE 5 MG TABLET PO SCH (09:55)
[2022-08-31] MEDS: PANTOPRAZOLE 40 MG TAB DR PO SCH (09:55)
[2022-08-31] MEDS: ASPIRIN 81MG CHEW TAB PO SCH (10:06)
[2022-08-31] MEDS ORDERED: LOSA1TAB37 PO (11:10)
[2022-08-31 11:43] VITALS: BP 157/75
== END 2022-08-31 14:45 | disposition home or self-care (01) | DRG 682 ==
LOC: EDH 12:53 → UNDOADMOB 15:00 → INTOOBSV 15:00 → OBSVTOIN 15:00 → EDHIP 15:00 → OBSVTOIN 15:04 → 2CV 16:47 → 4BH 08-30 18:11
PROVIDERS: ADMIT Internal Medicine Infectious Disease; ATTEND Internal Medicine Infectious Disease
DX: N17.9 Acute kidney failure, unspecified (principal); G93.41 Metabolic encephalopathy; E87.1 Hypo-osmolality and hyponatremia; I13.0 Hypertensive heart and chronic kidney disease with heart failure and stage 1 through stage 4 chronic kidney disease, or unspecified chronic kidney disease; E87.20 Acidosis, unspecified; F03.94 Unspecified dementia, unspecified severity, with anxiety; Z20.822 Contact with and (suspected) exposure to COVID-19; E86.0 Dehydration; I25.10 Atherosclerotic heart disease of native coronary artery without angina pectoris; E11.65 Type 2 diabetes mellitus with hyperglycemia; R62.7 Adult failure to thrive; C44.90 Unspecified malignant neoplasm of skin, unspecified; E11.22 Type 2 diabetes mellitus with diabetic chronic kidney disease; E78.00 Pure hypercholesterolemia, unspecified; E87.6 Hypokalemia; E87.8 Other disorders of electrolyte and fluid balance, not elsewhere classified; I50.9 Heart failure, unspecified; M19.90 Unspecified osteoarthritis, unspecified site; N18.9 Chronic kidney disease, unspecified; Z74.01 Bed confinement status; Z83.3 Family history of diabetes mellitus; Z95.5 Presence of coronary angioplasty implant and graft; Z88.0 Allergy status to penicillin; Z95.810 Presence of automatic (implantable) cardiac defibrillator
CPT/HCPCS: 36415; 70450; 80048; 80053; 81001; 82550; 82948; 83036; 83605; 83735; 84100; 84295; 84484; 85025; 87040; 87635; 87804; 93005; G0378; G0481; J1650; J1815; J7030

== ENCOUNTER → 2022-09-06 | Outpatient (CLI) | payer OTHER, MEDICARE ==
[~2022-09-06] MED LIST changes: -AEC81 PO; -ATOR10TA69 PO; +BISA-107 PO; +CLON0.5T23 PO; -FURO20TA4 PO; -GLIP-162 PO; +GUAI-1166 PO; -LOSA25TA41 PO; -LOSA50TA64 PO; -METH4TAB3 PO; +OXYM-30 NS; +PRED5TAB PO; +SIMV10TA97 PO; +TRAM50TA4 PO; -VENL150T3 PO
== END | disposition home or self-care (01) ==
LOC: SHCH 08:32
PROVIDERS: ATTEND Internal Medicine Cardiovascular Disease
DX: I11.9 Hypertensive heart disease without heart failure (principal); I25.5 Ischemic cardiomyopathy; E11.9 Type 2 diabetes mellitus without complications; I31.39 Other pericardial effusion (noninflammatory); I34.0 Nonrheumatic mitral (valve) insufficiency; Z95.0 Presence of cardiac pacemaker
CPT/HCPCS: 93306

== ENCOUNTER 2022-09-13 02:32 | Emergency (ER) | payer OTHER, MEDICARE ==
[~2022-09-13] VITALS: Ht 149.9 cm; Wt 63.5 kg
[2022-09-13 03:08] LABS: BASOPHILS % (AUTO) 0.1 % (0.0-5.0); EOSINOPHILS % (AUTO) 1.1 % (0.0-8.0); HEMATOCRIT 32.9 % (36-48); LYMPHOCYTES % (AUTO) 31.2 % (21.0-51.0); MEAN CORPUSCULAR HEMOGLOBIN 27.4 pg (27.0-33.0); MEAN CORPUSCULAR HGB CONC 32.5 g/dL (32.0-36.0); MEAN CORPUSCULAR VOLUME 84.1 fL (79-99); MONOCYTES % (AUTO) 12.1 % (3.0-13.0); NEUTROPHILS % (AUTO) 55.4 % (40.0-77.0); PLATELET COUNT (AUTO) 259 K/uL (130-400); RED BLOOD CELL COUNT(AUTO) 3.91 MIL/uL (4.00-5.50); RED CELL DISTRIBUTION WIDTH 15.5 % (11.0-15.5); WHITE BLOOD COUNT (AUTO) 8.3 K/uL (4.8-10.8)
[2022-09-13 03:12] LABS: CREATININE 0.8 mg/dL (0.5-1.5)
[2022-09-13 03:17] LABS: ALBUMIN 3.8 g/dL (3.5-5.0); TOTAL PROTEIN, SERUM 7.3 g/dL (6.0-8.3)
[2022-09-13] MEDS ORDERED: LABETALOL 20MG SYG IV ONE (03:35)
[2022-09-13] MEDS ORDERED: LABETALOL 20MG VIAL IV ONE (04:00)
[2022-09-13 05:08] VITALS: BP 155/51
== END 2022-09-13 05:53 | disposition home or self-care (01) ==
LOC: EDH 02:32
DX: F41.9 Anxiety disorder, unspecified (principal); I10 Essential (primary) hypertension; E87.1 Hypo-osmolality and hyponatremia; E11.9 Type 2 diabetes mellitus without complications; Z88.0 Allergy status to penicillin; Z95.810 Presence of automatic (implantable) cardiac defibrillator; Z79.899 Other long term (current) drug therapy
CPT/HCPCS: 36415; 80053; 84484; 85025; 93005; 96374

== ENCOUNTER → 2023-03-03 | Outpatient (CLI) | payer OTHER, MEDICARE | END | disposition home or self-care (01) | LOC: SHCH 10:43 | PROVIDERS: ATTEND Internal Medicine Cardiovascular Disease | DX: I73.9 Peripheral vascular disease, unspecified (principal) | CPT/HCPCS: 93925 ==

== ENCOUNTER 2023-11-06 14:38 | Emergency (ER) | payer OTHER, MEDICARE ==
[~2023-11-06] VITALS: Ht 149.9 cm; Wt 61.2 kg
[~2023-11-06 14:38] MED LIST changes: -GLIP5TAB11 PO; +GLIP5TAB15 PO
[2023-11-06 15:20] LABS: BASOPHILS # (AUTO) 0.03 K/uL (0.00-0.20); BASOPHILS % (AUTO) 0.4 % (0.0-5.0); EOSINOPHILS # (AUTO) 0.05 K/uL (0.00-0.70); EOSINOPHILS % (AUTO) 0.7 % (0.0-8.0); HEMATOCRIT 34.9 % (36-48); IMMATURE GRANULOCYTE ABSOLUTE 0.03 K/uL (0-1); LYMPHOCYTES # (AUTO) 2.1 K/uL (1.0-4.8); LYMPHOCYTES % (AUTO) 27.8 % (21.0-51.0); MEAN CORPUSCULAR HEMOGLOBIN 25.1 pg (27.0-33.0); MEAN CORPUSCULAR HGB CONC 31.8 g/dL (32.0-36.0); MONOCYTES # (AUTO) 0.8 K/uL (0.1-1.0); MONOCYTES % (AUTO) 10.5 % (3.0-13.0); NEUTROPHILS # (AUTO) 4.5 K/uL (1.8-7.7); NEUTROPHILS % (AUTO) 60.2 % (40.0-77.0); PLATELET COUNT (AUTO) 231 K/uL (130-400); RED BLOOD CELL COUNT(AUTO) 4.42 MIL/uL (4.00-5.50); RED CELL DISTRIBUTION WIDTH 16.9 % (11.0-15.5); WHITE BLOOD COUNT (AUTO) 7.4 K/uL (4.8-10.8)
[2023-11-06 15:27] LABS: POTASSIUM 4.5 mmol/L (3.5-5.1)
[2023-11-06] MEDS ORDERED: ASPIRIN 325MG TAB PO ONE (15:30)
[2023-11-06] MEDS ORDERED: NITROGLYCERIN 0.4 MG SL TAB SL PRN (15:30)
[2023-11-06 16:09] VITALS: BP 129/57; PULSE 70; RESP 16; O2SAT 97
== END 2023-11-06 17:27 | disposition home or self-care (01) ==
LOC: EDH 14:38
DX: I10 Essential (primary) hypertension (principal); E11.9 Type 2 diabetes mellitus without complications; Z85.828 Personal history of other malignant neoplasm of skin; Z88.0 Allergy status to penicillin; Z95.810 Presence of automatic (implantable) cardiac defibrillator
CPT/HCPCS: 36415; 71045; 80048; 84484; 85025; 93005

== ENCOUNTER → 2024-09-12 | Outpatient (CLI) | payer MEDICARE ==
[~2024-09-12] MED LIST changes: +ACET-3859 PO; -ACET325T51 PO; +MEMA10TA21 PO; -MEMA10TA55 PO; -VENL-191 PO; +VENL-83 PO
--- NOTE | 2024-09-17 16:47 | HMCSR ---
APPROVED REPORT EXAM: Two-dimensional and M-mode echocardiogram with Doppler and color Doppler. INDICATION ICD: Atherosclerotic heart disease of koi coronary artery without angina pectoris I25.10 i25.5 z9 5.8 2D Dimensions RVDd3.6 cmLVEF(%)44.7 (>50%)LVED Vol(simp.)79.8 mL IVSd0.8 (0.7-1.1cm)FS(%)22 %LVES Vol(simp.)37.4 mL LVDd4.1 (3.8-5.6cm)LA (2D)4.2 (1.6-4.0cm)LVEF(%, simp.)53 % PWd0.9 (0.7-1.1cm)Ao Root(2D)3.1 (2.0-3.7cm)LA ESV INDEX (4CH)43.30 mL/m2 IVSs1.3 cmLVOT diam1.9 (1.8-2.4cm)LA ESV INDEX (2CH)40.70 mL/m2 LVDs3.2 (2.5-4.0cm)IVC diam1.3 cmLA ESV INDEX (BP)42.90 mL/m2 PWs1.3 cm M-Mode Dimensions EPSS0.8 cm LA (MM)5.1 (1.6-4.0cm) Ao Root(MM)2.8 (2.0-3.7cm) Aortic Valve AoV VTI0.4 mAo Mean GR7.0 mmHgLVOT VTI0.19 m ANABEL (VMAX)1.5 cm2Al P1/2T468 msAVA (VTI) 1.5 cm2 Mitral Valve MV E Vmax63.5 cm/sDECEL Oyyw649 ms MV A Vmax54.3 cm/sP 1/2 T76 ms E/A ratio1.2MVA (PHT)2.9 cm2 TDI E/E' Tsajlz84.7E/E' Lateral8.8 Medial E' Peak V5.00 cm/sLateral E' Peak V7.20 cm/s Pulmonary Valve PV VTI0.26 mPV Mean GR3 mmHg Tricuspid Valve TR Vmax2.5 m/sRAP (EST) 3 opAnOFMB37.5 mmHg TR Peak GR25.5 mmHg Left Ventricle The left ventricle is normal size. There is normal left ventricular wall thickness. LVEF is 50-55%. T he left ventricular diastolic function is normal. Right Ventricle The right ventricle is normal size. The right ventricular systolic function is normal. Device lead is present in the right ventricle. Atria The left atrium is borderline dilated. The right atrium size is normal. Device lead is present in the right atrium. Aortic Valve The aortic valve is normal in structure. Mild aortic regurgitation. There is no aortic valvular steno sis. Mitral Valve The mitral valve is normal in structure. Mitral regurgitation is trace. Mild mitral stenosis. Tricuspid Valve The tricuspid valve is normal in structure and function. There is mild tricuspid valve regurgitation noted. Pulmonic Valve The pulmonary valve is normal in structure. There is no pulmonic valvular regurgitation. Great Vessels The aortic root is normal in size. The IVC is normal in size and collapses >50% with inspiration. Pericardium No pericardial effusion. Conclusion The left ventricle is normal size. LVEF is 50-55%. Device lead is present in the right ventricle. Device lead is present in the right atrium. Mild aortic regurgitation. Mitral regurgitation is trace.
== END | disposition home or self-care (01) ==
LOC: RAH 13:38
PROVIDERS: ATTEND Internal Medicine Cardiovascular Disease
DX: I25.10 Atherosclerotic heart disease of native coronary artery without angina pectoris (principal); I25.5 Ischemic cardiomyopathy; Z95.810 Presence of automatic (implantable) cardiac defibrillator
CPT/HCPCS: 93306

== ENCOUNTER 2025-02-08 11:24 | Emergency (ER) | payer MEDICARE ==
[~2025-02-08] VITALS: Ht 149.9 cm; Wt 54.4 kg
[2025-02-08 12:12] LABS: BASOPHILS # (AUTO) 0.03 K/uL (0.00-0.20); BASOPHILS % (AUTO) 0.3 % (0.0-5.0); EOSINOPHILS # (AUTO) 0.09 K/uL (0.00-0.70); EOSINOPHILS % (AUTO) 0.8 % (0.0-8.0); HEMATOCRIT 38.8 % (36-48); IMMATURE GRANULOCYTE ABSOLUTE 0.04 K/uL (0-1); LYMPHOCYTES # (AUTO) 1.7 K/uL (1.0-4.8); LYMPHOCYTES % (AUTO) 15.4 % (21.0-51.0); MEAN CORPUSCULAR HEMOGLOBIN 25.2 pg (27.0-33.0); MEAN CORPUSCULAR HGB CONC 31.2 g/dL (32.0-36.0); MEAN CORPUSCULAR VOLUME 80.7 fL (79-99); MONOCYTES # (AUTO) 0.9 K/uL (0.1-1.0); NEUTROPHILS # (AUTO) 8.3 K/uL (1.8-7.7); NEUTROPHILS % (AUTO) 75.1 % (40.0-77.0); PLATELET COUNT (AUTO) 198 K/uL (130-400); RED BLOOD CELL COUNT(AUTO) 4.81 MIL/uL (4.00-5.50); RED CELL DISTRIBUTION WIDTH 17.1 % (11.0-15.5)
[2025-02-08 12:23] LABS: POTASSIUM 4.1 mmol/L (3.5-5.1)
[2025-02-08 12:26] LABS: INR 1.03 (0.85-1.15); PROTHROMBIN TIME 10.9 SEC (9.6-11.6)
[2025-02-08 12:27] LABS: PARTIAL THROMBOPLASTIN TIME 26.3 SEC (26.3-35.5)
[2025-02-08 12:28] LABS: MAGNESIUM 2.2 mg/dL (1.80-2.40)
[2025-02-08] MEDS: LACTATED RINGERS 1000ML 1,000 ML IV ONE (12:28)
[2025-02-08 12:59] LABS: B-TYPE NATRIURETIC PEPTIDE 61 pg/mL (0-100)
[2025-02-08 14:55] LABS: ADD UA MICROSCOPIC YES; APPEARANCE,URINE CLEAR (CLEAR); BILIRUBIN,URINE NEGATIVE (NEGATIVE); COLOR,URINE COLORLESS (YELLOW); GLUCOSE, URINE (UA) >=1000 mg/dL (NEGATIVE); KETONES,URINE NEGATIVE (NEGATIVE); LEUKOCYTE ESTERASE ,URINE NEGATIVE Leu/uL (NEGATIVE); NITRATE,URINE NEGATIVE (NEGATIVE); OCCULT BLOOD,URINE NEGATIVE (NEGATIVE); PH,URINE 5.5 (5.0-8.0); PROTEIN,URINE NEGATIVE (NEGATIVE); UROBILINOGEN,URINE 0.2 mg/dL (0.2-1.0)
[2025-02-08 14:56] LABS: MUCUS,URINE RARE LPF (None Seen); RBC,URINE 0-1 /HPF (0-1); SQUAMOUS EPITHELIAL CELL,UR RARE /HPF (0-2); WBC,URINE 0-1 /HPF (0-1)
--- NOTE | 2025-02-08 15:10 | HMCIMG ---
CHEST 1VW HISTORY: Weakness COMPARISON: 11/06/2023 FINDINGS: A frontal projection of the chest was obtained. No acute pulmonary infiltrates is seen. The heart is normal in size. Degenerative changes are seen. Pacemaker is seen entering from the left. No evidence of aortic calcification is seen. IMPRESSION: 1. No acute pulmonary infiltrate is seen.
--- NOTE | 2025-02-08 15:16 | EKG ---
[facility] Test Date: 2025-02-08 Test Time: 11:54:41 Pat Name: LISA LIVINGSTON Department: ED Room: Gender: Female Feller Hand: [id number] : 1945 Requested By: SILVIA AMOR Order Number: [id number] Reading MD: Measurements Intervals [place] Rate: 60 P: 147 LA: 126 QRS: 162 QRSD: 144 T: 79 QT: 500 QTc: 501 Interpretive Statements Ventricular-paced complexes Biventricular paced rhythm No previous ECG available for comparison Please click the below link to view image of tracing.
--- NOTE | 2025-02-08 15:38 | ERN ---
General Chief Complaint: Weakness Stated Complaint: GENERAL BODY WEAKNESS Time Seen by MD: 11:26 Source: patient History of Present Illness Initial Comments Patient is a 79-year-old female coming in to be evaluated for generalized body weakness. Patient states that she has been weak for a couple of days and he was for further evaluation. Allergies: Coded Allergies: Penicillins (Unverified Allergy, Unknown, 05/25/19) Home Meds Reported Medications Oxymetazoline HCl (Oxymetazoline HCl) 30 Ml [place], 1 ML NS DAILY, SPRAY 08/30/22 Guaifenesin/Codeine Phosphate (Ninjacof-Xg Liquid) 473 Ml Liquid, 7.5 ML PO Q6H PRN for COUGH/COLD SYMPTOMS 08/30/22 Prednisone (Prednisone) 5 Mg Tablet, 5 MG PO DAILY, TAB 08/30/22 Simvastatin (Simvastatin) 10 Mg Tablet, 10 MG PO HS, TAB 08/30/22 Bisacodyl (Laxative) 5 Mg Tablet.dr, 5 MG PO DAILY PRN for CONSTIPATION, TAB 08/30/22 Clonazepam (Clonazepam) 0.5 Mg Tab.rapdis, 0.5 MG PO BID PRN for ANXIETY/AGITATION, TAB 08/30/22 Tramadol Hcl (Tramadol HCl) 50 Mg Tablet, 50 MG PO BID PRN for PAIN LEVEL 6 TO 10, TAB 08/30/22 Melatonin/Pyridoxine HCl (B6) (Melatonin 3 mg Tablet) 1 Each Tablet, 1 EACH PO HS, TAB 06/29/22 Pantoprazole Sodium (Pantoprazole Sodium) 40 Mg Tablet.dr, 40 MG PO DAILY, TAB 06/29/22 Venlafaxine HCl (Venlafaxine HCl) 75 Mg Tablet, 37.5 MG PO DAILY for 14 Days, TAB 06/29/22 Glipizide (Glipizide) 5 Mg Tablet, 5 MG PO BID, TAB 06/29/22 Carvedilol (Carvedilol) 25 Mg Tablet, 25 MG PO BID, TAB 06/29/22 Acetaminophen (Acetaminophen) 325 Mg Tablet, 650 MG PO TIDP PRN for PAIN LEVEL 1 TO 5, TAB 07/04/21 Memantine HCl (Memantine HCl) 10 Mg Tablet, 10 MG PO DAILY, TAB 07/04/21 Sucralfate (Sucralfate) 1 Gm Tablet, 1 GM PO ACHS, TAB 07/04/21 Baclofen (Baclofen) 10 Mg Tablet, 10 MG PO DAILY, TAB 07/04/21 Past Medical History Past Medical History: CAD, Diabetes-Type II, Hypertension Medical History Other: SKIN CA Past Surgical History: Pacer/AICD Surgical History Other: STENTED ARTERY Family History Family History: Negative Social History Social History: Negative, Other ROS Dictation CONSTITUTIONAL: No chills, no fever, weakness, no diaphoresis, no malaise. HEAD/FACE: No signs of trauma. EENT: No eye pain, no blurred vision, no tearing, no double vision, no ear pain, no ear discharge, no nose pain, no nasal congestion, no throat pain, no throat swelling, no mouth pain. RESPIRATORY: No cough, no orthopnea, no SOB, no stridor, no wheezing. CARDIOVASCULAR: No chest pain, no edema, no palpitations, no syncope. GASTROINTESTINAL/ABDOMINAL: No abdominal pain, no constipation, no diarrhea, no nausea, no vomiting. GENITOURINARY: No abnormal discharge, no dysuria, no frequent urination, no hematuria. No complaints of pain in the genitals. MUSCULOSKELETAL: No back pain, no gout, no joint pain, no joint swelling, no muscle pain, no muscle stiffness, no neck pain. INTEGUMENTARY: No change in color, no change in hair/nails, no dryness, no lesion, no lumps, no rash. NEUROLOGICAL/PSYCH: No anxiety, not depressed, no emotional problem, no headache, no numbness, no pre-existing deficit, no history of seizures, no tremors, no weakness. HEMATOLOGIC/LYMPHATIC: Not anemic, no history of blood clots, no apparent bleeding, no bruising, glands not swollen. All Systems Negative, Except as Noted. Physical Exam Physical Exam Dictation VITAL SIGNS: Reviewed. GENERAL APPEARANCE: Alert, oriented x3, no acute distress, obese. HEAD AND FACE: Non-traumatic. EYES: PERRL, pink conjunctivas, eyelid no trauma, anterior chamber clear. EARS: Pinnas intact and no signs of trauma or erythema. Ear canals clear and no discharge. TMs no erythema. NOSE: No discharge, no bleeding. OROPHARYNX: Mouth normal, teeth no caries, tongue pink. Pharynx clear, no erythema. Tonsils no exudates, no abscesses noted. Mucous membrane moist. NECK: Supple, non-tender, no thyromegaly, no masses, no JVD, no bruits. BREAST: Deferred. CHEST: No tenderness, no crepitus, no paradoxical movement, no retractions. LUNGS: Clear, well-ventilated, symmetric, no rales, no wheezing, no rhonchi, no stridor, good breath sounds bilaterally. HEART: Regular rate, regular rhythm, no murmur, no gallops. VASCULAR: No peripheral edema. ABDOMEN: Soft, positive bowel sounds, nondistended, no guarding, nontender, no rebound, no masses no hepatomegaly, no splenomegaly, no Soriano's sign, no hernias. RECTAL: Deferred. GENITAL: Deferred. NEUROLOGICAL: Normal speech, gross motor function intact, gross sensory function intact. MUSCULOSKELETAL: Neck nontender, full range of motion, back nontender, full range of motion. EXTREMITIES: Nontender, full range of motion. SKIN: Color pink, dry, no turgor, no rash, no lacerations, no abrasions, no contusions. LYMPHATICS: Deferred. Results Laboratory and Microbiology Lab and Micro Result Laboratory Tests Test 02/08/25 11:52 02/08/25 14:22 White Blood Count 11.0 K/uL (4.8-10.8) H Red Blood Count 4.81 MIL/uL (4.00-5.50) Hemoglobin 12.1 g/dL (12.0-16.0) Hematocrit 38.8 % (36-48) Mean Corpuscular Volume 80.7 fL (79-99) Mean Corpuscular Hemoglobin 25.2 pg (27.0-33.0) L Mean Corpuscular Hemoglobin Concent 31.2 g/dL (32.0-36.0) L Red Cell Distribution Width 17.1 % (11.0-15.5) H Platelet Count 198 K/uL (130-400) Mean Platelet Volume 10.7 fL (7.5-10.5) H Immature Granulocyte % (Auto) 0.4 % (0-1) Neutrophils (%) (Auto) 75.1 % (40.0-77.0) Lymphocytes (%) (Auto) 15.4 % (21.0-51.0) L Monocytes (%) (Auto) 8.0 % (3.0-13.0) Eosinophils (%) (Auto) 0.8 % (0.0-8.0) Basophils (%) (Auto) 0.3 % (0.0-5.0) Neutrophils # (Auto) 8.3 K/uL (1.8-7.7) H Lymphocytes # (Auto) 1.7 K/uL (1.0-4.8) Monocytes # (Auto) 0.9 K/uL (0.1-1.0) Eosinophils # (Auto) 0.09 K/uL (0.00-0.70) Basophils # (Auto) 0.03 K/uL (0.00-0.20) Absolute Immature Granulocyte (auto 0.04 K/uL (0-1) Nucleated Red Blood Cells 0.0 % (0.0-0.19) Prothrombin Time 10.9 SEC (9.6-11.6) Prothromb Time International Ratio 1.03 (0.85-1.15) Activated Partial Thromboplast Time 26.3 SEC (26.3-35.5) Sodium Level 137 mmol/L (136-145) Potassium Level 4.1 mmol/L (3.5-5.1) Chloride Level 99 mmol/L (101-111) L Carbon Dioxide Level 29 mmol/L (21-32) Blood Urea Nitrogen 21 mg/dL (7-18) H Creatinine 1.0 mg/dL (0.5-1.0) Glomerular Filtration Rate Calc 58 mL/min (>90) Random Glucose 161 mg/dL (70-105) H Total Calcium 8.7 mg/dL (8.5-10.1) Magnesium Level 2.20 mg/dL (1.80-2.40) Total Creatine Kinase 48 U/L (21-232) # Troponin I High Sensitivity 9 ng/L (4-50) B-Type Natriuretic Peptide 61 pg/mL (0-100) Urine Color COLORLESS (YELLOW) Urine Appearance CLEAR (CLEAR) Urine pH 5.5 (5.0-8.0) Urine Specific [place] 1.009 (1.001-1.031) Urine Protein NEGATIVE mg/dL (NEGATIVE) Urine Glucose (UA) >=1000 mg/dL (NEGATIVE) H Urine Ketones NEGATIVE mg/dL (NEGATIVE) Urine Occult Blood NEGATIVE (NEGATIVE) Urine Nitrate NEGATIVE (NEGATIVE) Urine Bilirubin NEGATIVE mg/dL (NEGATIVE) Urine Urobilinogen 0.2 mg/dL (0.2-1.0) Urine Leukocyte Esterase NEGATIVE Chika/uL Urine RBC 0-1 /HPF (0-1) Urine WBC 0-1 /HPF (0-1) Urine Squamous Epithelial Cells RARE /HPF (0-2) Urine Bacteria None /HPF (None Seen) Labs Reviewed?: Yes EKG/XRAY/US/CT/MRI EKG Comment 02/08/2025 time 11:54 a.m. Ventricular rate [address] wave elevation or depression X-RAY Comment [facility] [address] [place] [address] IMAGING REPORT Signed PATIENT: LISA LIVINGSTON MR#: [id number] : 1945 SEX: F AGE: 79 LOCATION: [facility] ORDER [id number] STATUS: REG ER REPORT#: [id number] SERVICE [id number] REASON: weakness ORDERING PHYSICIAN: SILVIA AMOR MD PROCEDURE: CXR1VW - CHEST 1VW CHEST 1VW HISTORY: Weakness COMPARISON: 11/06/2023 FINDINGS: A frontal projection of the chest was obtained. No acute pulmonary infiltrates is seen. The heart is normal in size. Degenerative changes are seen. Pacemaker is seen entering from the left. No evidence of aortic calcification is seen. IMPRESSION: 1. No acute pulmonary infiltrate is seen. DICTATED BY: MARSHALL FRANCE MD DATE: 02/08/25 1507 ELECTRONICALLY SIGNED BY: MARSHALL FRANCE MD DATE: 02/08/25 1510 [facility] MDM: Differential diagnosis: Generalized body weakness, dehydration, Patient is a 79-year-old female coming in to be evaluated for generalized body weakness. Laboratory workup negative for acute findings. Patient was hydrated with IV fluids states he feels much better will be discharged in stable condition throughout ER visit patient has been stable I did advised her appropriate follow up with PCP for ongoing evaluation and management . ED Course Orders Procedure Category Date Status Time Cbc With Differential LAB 02/08/25 Complete 11:27 Prothrombin Time With LAB 02/08/25 Complete INR 11:27 B-Type Natriuretic LAB 02/08/25 Complete Peptide 11:27 Chest 1vw RAD 02/08/25 Resulted 11:27 12 Lead Ekg Tracing- EKG 02/08/25 Complete Technical 11:27 Lactated Ringers PHA 02/08/25 Complete 1000ml (Lactated 11:30 Magnesium LAB 02/08/25 Complete 11:27 Creatine Kinase, Total LAB 02/08/25 Complete 11:27 Troponin I High LAB 02/08/25 Complete Sensitivity 11:27 Urinalysis Profile LAB 02/08/25 Complete 11:27 Partial LAB 02/08/25 Complete Thromboplastin Time 11:27 Basic Metabolic Panel LAB 02/08/25 Complete 11:27 Current Medications Medications (Trade) Dose Ordered Sig/Ariane Route PRN Reason Start Time Stop Time Status Last Admin Dose Admin Lactated Ringer's 1,000 ml @ 0 mls/hr ONCE ONCE IV 02/08/25 11:30 02/08/25 11:37 DC 02/08/25 12:28 Vital Signs Date Time Temp Pulse Resp B/P (MAP) Pulse Ox O2 Delivery O2 Flow Rate FiO2 02/08/25 14:29 97.9 66 16 145/76 96 Room Air* 0 21 02/08/25 11:51 97.9 62 16 126/79 98 Room Air* 0 21 02/08/25 11:26 98.1 88 19 104/50 96 Room Air 0 DX & DISP Disposition: Discharge Departure Impression: Primary Impression: Anxiety Additional Impression: Dehydration Condition: Stable Referrals: CIPRIANO SUN MD (PCP) Time of Disposition: 15:38 SILVIA AMOR MD Feb 08, 2025 15:38
[2025-02-08 15:42] VITALS: BP 141/79; PULSE 66; RESP 16; TEMP 97.9; O2SAT 96
== END 2025-02-08 15:47 | disposition home or self-care (01) ==
LOC: EDH 11:24
DX: F41.9 Anxiety disorder, unspecified (principal); E86.0 Dehydration; E11.9 Type 2 diabetes mellitus without complications; I10 Essential (primary) hypertension; I25.10 Atherosclerotic heart disease of native coronary artery without angina pectoris; Z79.01 Long term (current) use of anticoagulants; Z79.899 Other long term (current) drug therapy; Z88.0 Allergy status to penicillin; Z95.810 Presence of automatic (implantable) cardiac defibrillator
CPT/HCPCS: 99285; 96360; 71045; 82550; 83735; 84484; 80048; 83880; 85025; 85610; 85730; 81001; 36415; 93005; J7120